=== PATIENT | male | born 1940 | race Two or more races ===

== ENCOUNTER 2022-07-09 10:35 | Inpatient (IN) | payer MEDICARE, BC ==
[2022-07-09] VITALS (12 sets, daily range): BP systolic 101–117; BP diastolic 56–83
[~2022-07-09] VITALS: Ht 180.3 cm; Wt 63.5 kg
--- NOTE | 2022-07-09 11:37 | NUR ---
NURSING SUP CALLED AND ICU BED - 260 PROVIDED
[2022-07-09 11:39] LABS: BASOPHILS % (AUTO) 0.4 % (0.0-2.0); EOSINOPHILS % (AUTO) 0.6 % (0.0-6.0); HEMATOCRIT 44 % (39-51); HEMOGLOBIN 14.5 g/dL (13.5-17.5); LYMPHOCYTES # (AUTO) 0.5 K/uL (0.8-4.8); LYMPHOCYTES % (AUTO) 4.5 % (20.0-44.0); MEAN CORPUSCULAR HGB CONC 33 g/dl (31.0-36.0); MEAN CORPUSCULAR VOLUME 92 fL (80-96); MONOCYTES # (AUTO) 0.3 K/uL (0.1-1.30); MONOCYTES % (AUTO) 2.9 % (2.0-12.0); NEUTROPHILS % (AUTO) 91.6 % (43.0-81.0); PLATELET COUNT (AUTO) 153 K/uL (150-450); RED BLOOD CELL COUNT(AUTO) 4.74 MIL/uL (4.5-6.0); WHITE BLOOD COUNT (AUTO) 10.9 K/uL (4.3-11.0)
[2022-07-09 12:11] LABS: CALCIUM, SERUM 8.9 mg/dL (8.5-10.1); CARBON DIOXIDE 28 mmol/L (21-32); CHLORIDE 105 mmol/L (98-107); CREATININE 1.1 mg/dL (0.6-1.3); GLUCOSE 133 mg/dL (74-106); POTASSIUM 4.5 mmol/L (3.5-5.1); SODIUM SERUM 138 mmol/L (136-145); UREA NITROGEN, BLOOD 30 mg/dL (7-18)
[2022-07-09 12:24] LABS: ALANINE AMINOTRANSFERASE 80 U/L (12-78); ALBUMIN 2.8 g/dL (3.4-5.0); ALKALINE PHOSPHATASE 101 U/L (46-116); ASPARTATE AMINOTRANSFERASE 57 U/L (15-37); BILIRUBIN,DIRECT 0.4 mg/dL (0.0-0.2); BILIRUBIN,TOTAL 1.2 mg/dL (0.2-1.0); TOTAL PROTEIN, SERUM 7.2 g/dL (6.4-8.2)
--- NOTE | 2022-07-09 12:28 | NUR ---
Critical lab lactic acid 2.[address] rere tucker
[2022-07-09] MEDS ORDERED: VANCOMYCIN 1 GM in IV D5W 250 ML IV ONE (12:30)
[2022-07-09] MEDS ORDERED: ENOXAPARIN SODIUM 40 MG/0.4 ML DISP.SYRIN SQ SCH (12:30)
[2022-07-09 12:46] LABS: ABG BASE EXCESS 0.7 mmol/L; ABG PCO2 29.5 mmHg (35.0-45.0); ABG PH 7.503 (7.350-7.450); ABG PO2 88.6 mmHg (75.0-100.0); COHb 0.8 % (0.5-1.5); MetHb 0.2 % (0.0-1.5); O2Hb 96.1 % (94.0-97.0)
[2022-07-09] MEDS ORDERED: VANCOMYCIN 1 GM VIAL ONE (12:56)
[2022-07-09] MEDS ORDERED: ENOXAPARIN SODIUM 40 MG/0.4 ML DISP.SYRIN SQ ONE (12:58)
[2022-07-09] MEDS ORDERED: CEFTRIAXONE 1GM BAG (ER ONLY) 50 ML IV ONE (12:58)
[2022-07-09] MEDS ORDERED: methylPREDNISolone SOD SUCC 125 MG/2ML VIAL ONE (12:59)
[2022-07-09] MEDS ORDERED: CEFTRIAXONE 1GM BAG (ER ONLY) 1 GM/50 ML PIGGYBACK IV ONE (13:00)
[2022-07-09] MEDS ORDERED: AZITHROMYCIN 500 MG in IV D5W 250 ML IV ONE (13:00)
--- NOTE | 2022-07-09 13:17 | NUR ---
CALLED DR BIANCA HOPPER SPEAKING WITH DR CONDE
[2022-07-09] MEDS: methylPREDNISolone SOD SUCC 125 MG/2ML VIAL IV SCH ×2 (13:19→21:08)
--- NOTE | 2022-07-09 13:20 | NUR ---
DR BIANCA HOPPER [phone]
--- NOTE | 2022-07-09 13:29 | NUR ---
PAGED EPIC MOUNTAIN GUIDE
--- NOTE | 2022-07-09 13:31 | NUR ---
EPIC INTEGRATION TECHNICIAN AND ER MD ON PHONE
--- NOTE | 2022-07-09 14:04 | NUR ---
ICU 260
--- NOTE | 2022-07-09 14:14 | NUR ---
PT ARRIVED IN ICU TO ROOM 260 AT THIS TIME. PT ALERT OX3, AT BEDSIDE. PT ON 10L SIMPLE MASK. PT SETTLED IN ROOM, PT PLACED ON MONITOR.
--- NOTE | 2022-07-09 14:29 | NUR ---
PATIENT TRANSFERRED TO ICU BED 260, REPORT WAS GIVEN TO RN IVETT, IV ANTIBIOTIC INFUSING AT TIME OF TRANSFER, ALL CARE ENDORSED.
[2022-07-09] MEDS: IV NS 0.9% 1,000 ML IV PRN (14:59)
[2022-07-09] MEDS ORDERED: ONDANSETRON HCL/PF 4 MG/2 ML VIAL IVP PRN (15:00)
[2022-07-09] MEDS: PIPERACILLIN /TAZOBACTAM 3.375 G in IV D5W 50 ML IV SCH ×2 (16:00→23:10)
[2022-07-09] MEDS ORDERED: ENOXAPARIN SODIUM 30 MG/0.3 ML DISP.SYRIN SQ ONE (16:30)
--- NOTE | 2022-07-09 18:29 | NUR ---
END OF SHIFT NOTE: PT CONTINUES TO BE ON 10L SIMPLE MASK, DESATS VERY EASILY. PT ENCOURAGED TO TAKE SLOW DEEP BREATHS WITH PURSED LIP BREATHING AND LIMITED TALKING. PT APPEARS TO BE ANXIOUS ASKING TO TALK TO DR CRONIN ABOUT HIS X-RAY RESULTS. PER DR CRONIN HE EXPLAINED PT'S XRAY RESULTS TO PATIENT IN ER. RN EXPLAINED TO PATIENT. PT COUGHS UP PHLEGM, PINK TINGED, DR CRONIN NOTIFIED. TROPONIN 218, ORDER RECEIVED TO INCREASE LOVENOX. PT CHECKED ON HOURLY AND PRN BY NURSING STAFF.
[2022-07-09] MEDS ORDERED: PHENYLEPHRINE/SHK LV/MO/PET,WH 30 GM TUBE RC PRN (19:00)
--- NOTE | 2022-07-09 20:00 | NUR ---
MARKET ANALYST RT UNABLE TO INDUCE SPUTUM TO SEND SPECIMEN Addendum: 07/11/22 at 0640 by CHANDANA MILLER RN WRONG PT
[2022-07-09] MEDS: IPRATROPIUM NEB FS 0.5 MG/2.5 ML AMPUL.NEB NEB SCH (20:22)
[2022-07-09] MEDS: ALBUTEROL HALF STRENGTH 1.25 MG/3 ML VIAL.NEB NEB SCH (20:22)
[2022-07-09] MEDS: GUAIFENESIN LA 600 MG TABLET.SA PO SCH (21:05)
[2022-07-09] MEDS: ENOXAPARIN SODIUM 60 MG/0.6 ML DISP.SYRIN SQ SCH (21:12)
[2022-07-10] VITALS (35 sets, daily range): BP systolic 92–128; BP diastolic 48–95
[2022-07-10] MEDS: IPRATROPIUM NEB FS 0.5 MG/2.5 ML AMPUL.NEB NEB SCH ×4 (02:29→20:07)
[2022-07-10] MEDS: ALBUTEROL HALF STRENGTH 1.25 MG/3 ML VIAL.NEB NEB SCH ×4 (02:29→20:07)
[2022-07-10 04:01] LABS: BASOPHILS % (AUTO) 0.1 % (0.0-2.0); HEMATOCRIT 40 % (39-51); HEMOGLOBIN 13.2 g/dL (13.5-17.5); LYMPHOCYTES # (AUTO) 0.4 K/uL (0.8-4.8); LYMPHOCYTES % (AUTO) 4.9 % (20.0-44.0); MEAN CORPUSCULAR HGB CONC 33 g/dl (31.0-36.0); MEAN CORPUSCULAR VOLUME 91 fL (80-96); MONOCYTES # (AUTO) 0.2 K/uL (0.1-1.30); MONOCYTES % (AUTO) 2.3 % (2.0-12.0); NEUTROPHILS # (AUTO) 7.5 K/uL (1.8-8.9); NEUTROPHILS % (AUTO) 92.7 % (43.0-81.0); PLATELET COUNT (AUTO) 121 K/uL (150-450); RED BLOOD CELL COUNT(AUTO) 4.37 MIL/uL (4.5-6.0); WHITE BLOOD COUNT (AUTO) 8.1 K/uL (4.3-11.0)
[2022-07-10] MEDS: methylPREDNISolone SOD SUCC 125 MG/2ML VIAL IV SCH ×3 (04:15→20:32)
[2022-07-10 04:27] LABS: CALCIUM, SERUM 8.1 mg/dL (8.5-10.1); CARBON DIOXIDE 27 mmol/L (21-32); CHLORIDE 105 mmol/L (98-107); GLUCOSE 151 mg/dL (74-106); MAGNESIUM 2.2 mg/dL (1.8-2.4); PHOSPHORUS 4.3 mg/dL (2.5-4.9); SODIUM SERUM 136 mmol/L (136-145); UREA NITROGEN, BLOOD 29 mg/dL (7-18)
[2022-07-10] MEDS: PIPERACILLIN /TAZOBACTAM 3.375 G in IV D5W 50 ML IV SCH ×3 (06:30→23:00)
[2022-07-10] MEDS: GUAIFENESIN LA 600 MG TABLET.SA PO SCH ×2 (08:24→20:32)
[2022-07-10] MEDS: IV NS 0.9% 1,000 ML IV PRN (08:24)
[2022-07-10] MEDS: ENOXAPARIN SODIUM 60 MG/0.6 ML DISP.SYRIN SQ SCH (08:26)
[2022-07-10] MEDS: Z GUARD REMEDY 4 OZ OINT TP SCH (08:27)
[2022-07-10 08:49] LABS: ABG BASE EXCESS -0.6 mmol/L; ABG OXYGEN SATURATION 97.8 % (92.0-98.5); ABG PCO2 30.3 mmHg (35.0-45.0); ABG PH 7.477 (7.350-7.450); ABG PO2 101.8 mmHg (75.0-100.0); AaDO2 580.9 mmHg; COHb 0.6 % (0.5-1.5); MetHb 0.2 % (0.0-1.5); SITE, ABG Right Radial
[2022-07-10] MEDS ORDERED: FUROSEMIDE 40 MG/4 ML VIAL IV SCH (10:00)
[2022-07-10] MEDS ORDERED: PHENOL/SODIUM PHENOLATE 1 LOZ LOZENGE PO PRN (10:30)
[2022-07-10] MEDS ORDERED: GUAI600T53 PO (11:05)
[2022-07-10] MEDS ORDERED: FEXO180T94 PO (11:05)
[2022-07-10] MEDS ORDERED: ROSU20TA32 PO (11:05)
--- NOTE | 2022-07-10 11:16 | NUR ---
RELAYED TO TROPONIN LEVEL= 184; NEW ORDER OF LOVENOX 40MG QDAILY GIVEN BY . CHARGE NURSE MADE AWARE.
[2022-07-10] MEDS: MENTHOL/CETYLPYRD (CEPACOL) 1 LOZ LOZENGE PO PRN ×3 (11:30→21:29)
[2022-07-10] MEDS: VANCOMYCIN 0.75 GM in IV D5W 250 ML IV SCH ×3 (12:15)
--- NOTE | 2022-07-10 13:15 | NUR ---
PATIENT AND HIS REQUESTING COPY OF LAB RESULT/ CXR RESULT; INFORMED PATIENT/ THAT THEY HAVE TO SIGN A REQUEST FORM TO BE SUBMITTED TO THE MEDICAL RECORD DEPT., BOTH VERBALIZED UNDERSTANDING AND AGREED TO THE GIVEN INFORMATION BY STAFF. CHARGE NURSE MADE AWARE.
--- NOTE | 2022-07-10 18:26 | NUR ---
PATIENT ON HFNC + NRB WITH SETTINGS OF 40L, 100%. PATIENT HFNC COONECTED TO RED POWER SOURCE WITH BVM BY THE BEDSIDE. PATIENT IS ALERT AND AWAKE FOLLOWS COMMAND. Addendum: 07/10/22 at 1828 by DYLLAN IBARRA RT Amended: Links added.
--- NOTE | 2022-07-10 20:00 | NUR ---
MACHINIST MATE RT UNABLE TO INDUCE SPUTUM TO SEND SPECIMEN Addendum: 07/11/22 at 0641 by CHANDANA MILLER RN WRONG PT
[2022-07-10] MEDS: PANTOPRAZOLE 40 MG VIAL IV SCH (20:32)
[2022-07-11] VITALS (24 sets, daily range): BP systolic 80–142; BP diastolic 43–92
[2022-07-11] MEDS: VANCOMYCIN 0.75 GM in IV D5W 250 ML IV SCH ×2 (00:35→12:42)
[2022-07-11] MEDS: ALBUTEROL HALF STRENGTH 1.25 MG/3 ML VIAL.NEB NEB SCH ×4 (01:41→20:02)
[2022-07-11] MEDS: IPRATROPIUM NEB FS 0.5 MG/2.5 ML AMPUL.NEB NEB SCH ×4 (01:41→20:02)
[2022-07-11] MEDS: methylPREDNISolone SOD SUCC 125 MG/2ML VIAL IV SCH ×3 (04:50→20:53)
[2022-07-11 05:29] LABS: CALCIUM, SERUM 8.3 mg/dL (8.5-10.1); CREATININE 1.1 mg/dL (0.6-1.3); POTASSIUM 3.4 mmol/L (3.5-5.1)
[2022-07-11] MEDS: PIPERACILLIN /TAZOBACTAM 3.375 G in IV D5W 50 ML IV SCH ×3 (06:00→23:20)
--- NOTE | 2022-07-11 07:30 | NUR ---
RN OPENING NOTE PT IS IN BED HOB 30 DEGREES. PT IS ON HIGH FLOW NC @ 40L FIO2 @100% TOLERATING WELL WITH NO SIGNS OF DISTRESS OR LABORED BREATHING O2 SAT 98%. PT IS A/OX3; NSR AT THIS TIME. PT USES URINAL AND IS INDEPENDENT IN BED. PT IS NPO AT THIS TIME EXCEPT FOR MEDS. IV ACCESS R UA MIDLINE. BED IS LOCKED IN LOWEST POSITION X2 BED RAILS UP AND ALL HOSPITAL SAFETY MEASURES ARE IN PLACE. WILL CONTINUE TO MONITOR THIS SHIFT.
--- NOTE | 2022-07-11 08:14 | NUR ---
WOUND CARE CONSULT: PT PRESENTS WITH SACRAL DEEP TISSUE INJURY IN EVOLUTION WHICH EXTENDS TO RT BUTTOCK, PRESENT ON ADMISSION. [id number] MADE FOR SKIN PROTECTION AND WOUND CARE. DISCUSSED WITH NURSING STAFF. IN AGREEMENT WITH PLAN OF CARE. FIRST STEP LOW AIRLOSS MATTRESS IS ON ORDER. DISCUSSED WITH HEALTH PROMOTION MANAGER. DR TOBIAS GARCIA CALLED FOR SURGICAL CONSULT REQUEST. Addendum: 07/11/22 at 0817 by DORA BECK WNDNU Amended: Links added.
[2022-07-11] MEDS: Z GUARD REMEDY 4 OZ OINT TP SCH (08:39)
[2022-07-11] MEDS: GUAIFENESIN LA 600 MG TABLET.SA PO SCH (08:39)
--- NOTE | 2022-07-11 09:00 | NUR ---
RN NOTE: DIET AND BEDSIDE CHAIR PER DR. CRONIN, START REGULAR DIET AND ENCOURAGE PT TO SIT IN CHAIR AT BEDSIDE TOLERATED
[2022-07-11 09:28] LABS: ABG OXYGEN SATURATION 88.1 % (92.0-98.5); ABG PCO2 31.9 mmHg (35.0-45.0); ABG PH 7.532 (7.350-7.450); ABG PO2 48.3 mmHg (75.0-100.0); AaDO2 632.8 mmHg; COHb 0.9 % (0.5-1.5); O2Hb 87.3 % (94.0-97.0); SITE, ABG Right Brachial; VENT MODE, BG HFN 40 L / 100% FIO2
[2022-07-11] MEDS: GUAIFENESIN 300 MG/15 ML UDC PO SCH ×2 (09:37→20:54)
[2022-07-11] MEDS: POTASSIUM CHLORIDE 20 MEQ TAB.PRT.SR PO SCH ×2 (09:37→11:09)
[2022-07-11] MEDS: ENOXAPARIN SODIUM 40 MG/0.4 ML DISP.SYRIN SQ SCH (09:38)
[2022-07-11] MEDS: ACETAMINOPHEN 325 MG TABLET PO PRN ×2 (12:38→21:03)
[2022-07-11] MEDS: PROSOURCE / PROSTAT (PYXIS) 30 ML UDC GT SCH ×2 (13:00→17:00)
[2022-07-11] MEDS: ENSURE CLEAR 237 ML LIQUID (MIX BERRY) PO SCH (17:00)
--- NOTE | 2022-07-11 19:15 | NUR ---
RN OPENING NOTES RECEIVED PATIENT ON BED AWAKE, VERBALLY RESPONSIVE, A/0 X 4. ON HIGH FLOW @ 40 LPM, FIO2-100% AND ON NON REBREATHER MASK @ 15 LPM SATING AT 99%. RESPIRATORY EVEN AND UNLABORED, NO SOB NOTED. AFEBRILE, NO S/S OF DISTRESS NOTED. WITH RAFA MIDLINE, PATENT, INTACT, FLUSHED WITH NS. NO S/S OF INFILTRATION NOTED. REPOSITION PATIENT EVERY 2 HRS. ALL SAFETY PRECAUTION PROVIDED, BED IN LOWEST POSITION, LOCKED. BED ALARM ARMED. CALL LIGHT WITH IN REACH. AT BEDSIDE. CONTINUE TO MONITOR.
--- NOTE | 2022-07-11 19:23 | NUR ---
RN CLOSING NOTE PT IS IN BED HOB 30 DEGREES. PT IS ON HIGH FLOW NC @ 40L FIO2 @100% AND NON REBREATHER 15L. TOLERATING WELL WITH NO SIGNS OF DISTRESS OR LABORED BREATHING O2 SAT 98%. PT IS A/OX3; NSR AT THIS TIME. PT USES URINAL AND IS INDEPENDENT IN BED PT HAD 2 BM TODAY. PT IS ON REGULAR OVO-LACTO DIET. IV ACCESS R UA MIDLINE. BED IS LOCKED IN LOWEST POSITION X2 BED RAILS UP AND ALL HOSPITAL SAFETY MEASURES ARE IN PLACE. WILL ENDORSE TO MERCHANDISE ADJUSTMENT CLERK NURSE FOR GARO.
--- NOTE | 2022-07-11 20:40 | NUR ---
SHARON NOTES PATIENT STILL TACHYPNEIC, RR- MID 40'S, ATIVAN 0.5MG IVP GIVEN Addendum: 07/12/22 at 0145 by LIEDA RUFF RN WRONG PATIENT
[2022-07-11] MEDS: PANTOPRAZOLE 40 MG VIAL IV SCH (20:53)
[2022-07-11] MEDS: MENTHOL/CETYLPYRD (CEPACOL) 1 LOZ LOZENGE PO PRN (21:37)
[2022-07-12] VITALS (24 sets, daily range): BP systolic 95–153; BP diastolic 46–85
[2022-07-12] MEDS: VANCOMYCIN 1 GM in IV D5W 250ml IV SCH ×2 (01:07→13:04)
[2022-07-12] MEDS: IV NS 0.9% 250 ML IV PRN (01:40)
[2022-07-12] MEDS: IPRATROPIUM NEB FS 0.5 MG/2.5 ML AMPUL.NEB NEB SCH ×3 (02:08→19:33)
[2022-07-12] MEDS: ALBUTEROL HALF STRENGTH 1.25 MG/3 ML VIAL.NEB NEB SCH ×3 (02:08→19:33)
[2022-07-12] MEDS: MENTHOL/CETYLPYRD (CEPACOL) 1 LOZ LOZENGE PO PRN ×2 (02:56→15:51)
[2022-07-12 03:36] LABS: CALCIUM, SERUM 7.8 mg/dL (8.5-10.1); POTASSIUM 4.2 mmol/L (3.5-5.1)
[2022-07-12] MEDS: methylPREDNISolone SOD SUCC 125 MG/2ML VIAL IV SCH ×3 (05:28→21:25)
[2022-07-12] MEDS: PIPERACILLIN /TAZOBACTAM 3.375 G in IV D5W 50 ML IV SCH ×3 (06:46→23:02)
--- NOTE | 2022-07-12 07:13 | NUR ---
RN NOTES PATIENT SLEEPING, AROUSABLE. RESPIRATORY EVEN AND UNLABORED, NO SOB NOTED. REMAIN AFEBRILE, NO S/S OF DISTRESS NOTED. REPOSITION PATIENT EVERY 2 HRS. ALL DUE MEDS GIVEN, WOUND CARE DONE, PROCEDURE TOLERATED WELL. ALL SAFETY PRECAUTION PROVIDED, BED IN LOWEST POSITION, LOCKED. BED ALARM ARMED. CALL LIGHT WITH IN REACH. REPORT GIVEN TO MORNING SHIFT NURSE FOR CONTINUITY OF CARE.
--- NOTE | 2022-07-12 07:15 | NUR ---
DRILL RUNNER HELPER OPENING NOTE: RECEIVED PATIENT IN BED, AOX4. PT. ON NON-REBREATHER MASK AT 15 LPM AND HIFLO NASAL CANNULA AT 40LPM AND FIO2 AT 100%, SATURATING AT 99%. NO S/S OF RESPIRATORY DISTRESS NOTED. COURT COLLECTIONS OFFICER READS NSR, WITH HR OF 67 BPM. IV ACCESS ON RAFA MIDLINE, PATENT, INTACT, WITH NS RUNNING AT TKO. NO S/S OF INFILTRATION NOTED. PT. USES URINAL IN BED WITH OUTPUT OF CLEAR YELLOW URINE. SKIN ISSUES NOTED. WILL DO WOUND TREATMENT ORDERED. SAFETY MEASURES IN PLACE: BED IN LOWEST POSITION, LOCKED. HOB ELEVATED AT 30 DEGREES. BED ALARM ON. CALL LIGHT WITH IN REACH. WILL ENCOURAGE REPOSITIONING IN BED AT LEAST EVERY 2 HRS. WILL CONTINUE TO MONITOR PT. FOR ANY CHANGES.
[2022-07-12] MEDS: ENSURE CLEAR 237 ML LIQUID (MIX BERRY) PO SCH ×2 (08:00→18:02)
[2022-07-12] MEDS: PROSOURCE / PROSTAT (PYXIS) 30 ML UDC GT SCH ×3 (09:00→18:01)
[2022-07-12] MEDS: Z GUARD REMEDY 4 OZ OINT TP SCH (09:05)
[2022-07-12] MEDS: PANTOPRAZOLE 40 MG TABLET.DR PO SCH (09:06)
[2022-07-12] MEDS: GUAIFENESIN 300 MG/15 ML UDC PO SCH ×2 (09:06→21:24)
[2022-07-12] MEDS: ENOXAPARIN SODIUM 40 MG/0.4 ML DISP.SYRIN SQ SCH (09:07)
--- NOTE | 2022-07-12 09:15 | NUR ---
PRINT BINDING AND FINISHING WORKER CLOSING NOTE: PATIENT REMAINS IN BED, AOX4. PT. NOW ON JUST HIFLO NASAL CANNULA AT 40LPM AND FIO2 AT 100%, SATURATING AT 92%. NO S/S OF RESPIRATORY DISTRESS NOTED. COMMUNITY RELATIONS REPRESENTATIVE READS NSR, WITH HR OF 92 BPM. IV ACCESS ON RAFA MIDLINE, PATENT, INTACT, WITH NS RUNNING AT TKO. NO S/S OF INFILTRATION NOTED. PT. USES URINAL IN BED WITH TOTAL OUTPUT OF 575 ML CLEAR YELLOW URINE THIS SHIFT. 1 NORMAL BM. WOUND TREATMENT DONE ORDERED. PT. HAD PT EVAL TODAY AND ONLY ABLE TO STAND UP THEN STARTED TO DESATURATE AT 78%. SAFETY MEASURES MAINTAINED: BED IN LOWEST POSITION, LOCKED. HOB ELEVATED AT 30 DEGREES. BED ALARM ON. CALL LIGHT WITH IN REACH. ENCOURAGED REPOSITIONING IN BED AT LEAST EVERY 2 HRS. ENDORSED CONTINUITY OF CARE TO LEGAL COLLECTOR RN. Addendum: 07/12/22 at 2111 by KARI PINTO RN DOCUMENTED WITH WRONG TIME. THIS NOTE SHOULD BE DOCUMENTED AT 1915.
[2022-07-12 09:21] LABS: BASOPHILS % (AUTO) 0.3 % (0.0-2.0); EOSINOPHILS % (AUTO) 0.1 % (0.0-6.0); HEMATOCRIT 36 % (39-51); HEMOGLOBIN 12.1 g/dL (13.5-17.5); LYMPHOCYTES # (AUTO) 0.2 K/uL (0.8-4.8); LYMPHOCYTES % (AUTO) 3.2 % (20.0-44.0); MEAN CORPUSCULAR HGB CONC 34 g/dl (31.0-36.0); MEAN CORPUSCULAR VOLUME 91 fL (80-96); MONOCYTES # (AUTO) 0.2 K/uL (0.1-1.30); MONOCYTES % (AUTO) 3.7 % (2.0-12.0); NEUTROPHILS # (AUTO) 5.4 K/uL (1.8-8.9); NEUTROPHILS % (AUTO) 92.7 % (43.0-81.0); PLATELET COUNT (AUTO) 114 K/uL (150-450); RED BLOOD CELL COUNT(AUTO) 3.95 MIL/uL (4.5-6.0); WHITE BLOOD COUNT (AUTO) 5.8 K/uL (4.3-11.0)
[2022-07-12 12:17] LABS: BAND % (MANUAL) 4 % (0.0-5.0); LYMPHOCYTES % (MANUAL) 2 % (16-48); MONOCYTES % (MANUAL) 6 % (0-11.0); NEUTROPHILS % (MANUAL) 88 (42-76)
[2022-07-12] MEDS: ACETAMINOPHEN 325 MG TABLET PO PRN (13:06)
--- NOTE | 2022-07-12 14:10 | NUR ---
DELINQUENT TAX COLLECTOR ASSISTANT NOTE: PT. COMPLAINED OF 3/10 HEADACHE AT 1300. TYLENOL 650 MG PO GIVEN. PAIN NOW RESOLVED PER PT. WILL CONTINUE TO MONITOR PT.'S PAIN.
[2022-07-12] MEDS ORDERED: FINA5TAB11 PO (17:20)
--- NOTE | 2022-07-12 19:15 | NUR ---
RN OPENING NOTES RECEIVED PATIENT ON BED AWAKE, VERBALLY RESPONSIVE, A/0 X 4. ON HIGH FLOW @ 40 LPM, FIO2-100% SATING AT 89-90%. RESPIRATORY EVEN AND UNLABORED, NO SOB NOTED. AFEBRILE, NO S/S OF DISTRESS NOTED. WITH RAFA MIDLINE, PATENT, INTACT, FLUSHED WITH NS. NO S/S OF INFILTRATION NOTED. REPOSITION PATIENT EVERY 2 HRS. ALL SAFETY PRECAUTION PROVIDED, BED IN LOWEST POSITION, LOCKED. BED ALARM ARMED. CALL LIGHT WITH IN REACH. AT BEDSIDE. CONTINUE TO MONITOR.
[2022-07-12] MEDS: ACETYLCYSTEINE 10% SOLN 400 MG/4 ML VIAL NEB SCH (23:46)
[2022-07-13] VITALS (24 sets, daily range): BP systolic 99–154; BP diastolic 62–92
[2022-07-13] MEDS: VANCOMYCIN 1 GM in IV D5W 250ml IV SCH (01:26)
[2022-07-13] MEDS: IPRATROPIUM NEB FS 0.5 MG/2.5 ML AMPUL.NEB NEB SCH ×5 (01:53→23:30)
[2022-07-13] MEDS: ALBUTEROL HALF STRENGTH 1.25 MG/3 ML VIAL.NEB NEB SCH ×4 (01:53→20:12)
[2022-07-13 04:15] LABS: HEMATOCRIT 38 % (39-51); HEMOGLOBIN 12.7 g/dL (13.5-17.5); LYMPHOCYTES # (AUTO) 0.2 K/uL (0.8-4.8); LYMPHOCYTES % (AUTO) 2.8 % (20.0-44.0); MEAN CORPUSCULAR HGB CONC 34 g/dl (31.0-36.0); MEAN CORPUSCULAR VOLUME 91 fL (80-96); MONOCYTES # (AUTO) 0.2 K/uL (0.1-1.30); MONOCYTES % (AUTO) 3.3 % (2.0-12.0); NEUTROPHILS # (AUTO) 6.3 K/uL (1.8-8.9); NEUTROPHILS % (AUTO) 93.9 % (43.0-81.0); PLATELET COUNT (AUTO) 104 K/uL (150-450); RED BLOOD CELL COUNT(AUTO) 4.19 MIL/uL (4.5-6.0); WHITE BLOOD COUNT (AUTO) 6.7 K/uL (4.3-11.0)
[2022-07-13 04:36] LABS: CALCIUM, SERUM 8.1 mg/dL (8.5-10.1); CREATININE 0.8 mg/dL (0.6-1.3); POTASSIUM 4.1 mmol/L (3.5-5.1)
[2022-07-13] MEDS: methylPREDNISolone SOD SUCC 125 MG/2ML VIAL IV SCH (05:00)
[2022-07-13] MEDS: IV NS 0.9% 250 ML IV PRN (06:33)
[2022-07-13] MEDS: PIPERACILLIN /TAZOBACTAM 3.375 G in IV D5W 50 ML IV SCH ×3 (06:36→23:14)
--- NOTE | 2022-07-13 07:20 | NUR ---
PIPE FITTER AMMONIA Bedside report taken from [facility] nurse Lalo HERRERA. pt awake, alert, oriented x3, follows commands. pt moves bue and ble 3/5 and sitting up in bed. pt on high flow n/c with fio2 100%, tolerating well. pt NSR on monitor. pt continent and voids in urinal but gets sob upon exertion. bowel sounds present, abd soft and nondistended. pt has wounds see flowsheet. all lines traced. vitals stable. safety measures in place. will continue to monitor.
[2022-07-13] MEDS: PANTOPRAZOLE 40 MG TABLET.DR PO SCH (08:15)
[2022-07-13] MEDS: GUAIFENESIN 300 MG/15 ML UDC PO SCH ×2 (08:15→21:24)
[2022-07-13] MEDS: PROSOURCE / PROSTAT (PYXIS) 30 ML UDC GT SCH ×3 (08:16→17:00)
[2022-07-13] MEDS: ENSURE CLEAR 237 ML LIQUID (MIX BERRY) PO SCH ×2 (08:16→17:00)
[2022-07-13] MEDS: Z GUARD REMEDY 4 OZ OINT TP SCH (08:17)
[2022-07-13 08:46] LABS: ABG BASE EXCESS 3.6 mmol/L; ABG OXYGEN SATURATION 74.5 % (92.0-98.5); ABG PCO2 35.3 mmHg (35.0-45.0); ABG PH 7.496 (7.350-7.450); ABG PO2 36.5 mmHg (75.0-100.0); AaDO2 641.2 mmHg; COHb 0.9 % (0.5-1.5); MetHb 0.1 % (0.0-1.5); O2Hb 73.8 % (94.0-97.0); SITE, ABG Left Radial; VENT MODE, BG HHF 100%
--- NOTE | 2022-07-13 08:55 | NUR ---
AS400 PROGRAMMER ANALYST RT placed pt back on nonrebreather mask. pt tolerating well. vitals stable. will continue to monitor.
[2022-07-13] MEDS: ENOXAPARIN SODIUM 40 MG/0.4 ML DISP.SYRIN SQ SCH (09:12)
[2022-07-13] MEDS: ACETYLCYSTEINE 10% SOLN 400 MG/4 ML VIAL NEB SCH ×3 (09:13→23:30)
[2022-07-13] MEDS ORDERED: GUAIFENESIN LA 600 MG TABLET.SA PO PRN (10:00)
--- NOTE | 2022-07-13 10:00 | NUR ---
COMPRESSOR STATION ENGINEER pt had bm, stool collected for cdiff, lab called for pickup.
[2022-07-13] MEDS ORDERED: cetrizine 10 MG TABLET PO PRN (10:30)
--- NOTE | 2022-07-13 11:30 | NUR ---
PROMOTIONAL MARKETING AGENT lab called for second time for cdiff stool specimen pickup.
[2022-07-13] MEDS ORDERED: VANCOMYCIN 1.25 GM in IV D5W 250 ML IV SCH (13:00)
[2022-07-13] MEDS: ACETAMINOPHEN 325 MG TABLET PO PRN (13:45)
--- NOTE | 2022-07-13 13:59 | NUR ---
PIPE FINISHER per lab, specimen will not be tested and is rejected because stool is not liquid. charge nurse Lawerence peng and notified.
[2022-07-13] MEDS ORDERED: DIPHENOXYLATE HCL/ATROP SULF 1 UDTAB TABLET PO PRN (15:00)
[2022-07-13] MEDS: cetrizine 10 MG TABLET PO SCH (15:47)
[2022-07-13] MEDS: ATORVASTATIN 40 MG TABLET PO SCH (18:20)
--- NOTE | 2022-07-13 19:07 | NUR ---
HEATING UNIT INSTALLER Bedside report given to [facility] nurse Her RN, pt on highflow n/c and nonrebreather, tolerating well. awake, alert and oriented. all lines traced. all drips verified. pt clean and dry. safety measures in place, no signs of acute distress at this time. at bedside. transfer to [facility] pending nursing wind operations supervisor Simi HERRERA working on transfer, endorsed to [facility] nurse.
--- NOTE | 2022-07-13 19:45 | NUR ---
Patient wants the patient to transfer to [facility]. made aware that there is no order from the chart to transfer. She said to call the extrusion press adjuster doctor.There in only Timoteo LARIOS whose is extrusion press adjuster at this time.Patient is adamant to transfer patient to [facility].Called Timoteo LARIOS regarding this matter.She said she can not order any transfer since she dont know this patient. She called .Per above MD he can order transfer if [facility] accepting MD Dr.Benjamin Copeland will call him. made aware.
--- NOTE | 2022-07-13 20:35 | NUR ---
Called Flagsetter /supervisor carbon electrodes Simi about this transfer.She said to call [facility].Will find if bed is available. Called Giovanni at [facility] Tel phone # [phone] as regional transfer liaison.He said he will call Dr.Benjamin Dinorah howard MD for this patient.Face sheet fax to Giovanni as requested. .
--- NOTE | 2022-07-13 20:45 | NUR ---
Called Giovanni from [facility] and made him aware that accepting MD Dr.Benjamin Copeland will call for the transfer and provided tel phone # [phone] mobile.
--- NOTE | 2022-07-13 22:22 | NUR ---
RN NOTES PER PATIENT'S , PATIENT'S CODE STATUS TO BE CHANGED TO DNR/DNI. HOSPITALIST LEADERSHIP DEVELOPMENT CONSULTANT JAN STEWART NP NOTIFIED, CODE STATUS CHANGED TO DNR/DNI.
[2022-07-14] VITALS (24 sets, daily range): BP systolic 105–139; BP diastolic 32–106
[2022-07-14] MEDS: ALBUTEROL HALF STRENGTH 1.25 MG/3 ML VIAL.NEB NEB SCH ×4 (01:28→20:11)
[2022-07-14 04:26] LABS: BASOPHILS % (AUTO) 0.1 % (0.0-2.0); HEMATOCRIT 38 % (39-51); HEMOGLOBIN 12.7 g/dL (13.5-17.5); LYMPHOCYTES # (AUTO) 0.1 K/uL (0.8-4.8); LYMPHOCYTES % (AUTO) 1.9 % (20.0-44.0); MEAN CORPUSCULAR HGB CONC 33 g/dl (31.0-36.0); MEAN CORPUSCULAR VOLUME 91 fL (80-96); MONOCYTES # (AUTO) 0.2 K/uL (0.1-1.30); MONOCYTES % (AUTO) 2.1 % (2.0-12.0); NEUTROPHILS # (AUTO) 7.4 K/uL (1.8-8.9); NEUTROPHILS % (AUTO) 95.9 % (43.0-81.0); PLATELET COUNT (AUTO) 91 K/uL (150-450); RED BLOOD CELL COUNT(AUTO) 4.21 MIL/uL (4.5-6.0); WHITE BLOOD COUNT (AUTO) 7.7 K/uL (4.3-11.0)
[2022-07-14 04:47] LABS: CARBON DIOXIDE 31 mmol/L (21-32); CHLORIDE 104 mmol/L (98-107); CREATININE 0.7 mg/dL (0.6-1.3); GLUCOSE 190 mg/dL (74-106); MAGNESIUM 2.5 mg/dL (1.8-2.4); PHOSPHORUS 2.4 mg/dL (2.5-4.9); POTASSIUM 4.3 mmol/L (3.5-5.1); SODIUM SERUM 139 mmol/L (136-145); UREA NITROGEN, BLOOD 35 mg/dL (7-18)
--- NOTE | 2022-07-14 07:30 | NUR ---
RN NOTES PT FOUND SEMI FOWLERS DISPLAYING NO S/S OF ACUTE DISTRESS, PT ENDORSES NO PAIN AND IS BREATHING EVEN AND UNLABORED ON HIGH FLOW NC AND RNB. PT BREATHING DOES BECOME LABORED WHEN EATING OR TALKING, RN NOTES PURSED LIPS TO COMPENSATE. R UA ML IS PATENT AND INTACT. RN WILL CONTINUE CARE PLAN AND ANTICIPATE NEEDS. SAFETY MEASURES IN PLACE, BED LOCKED AND IN LOWEST POSITION, SIDE RAILS UPX2, CALL LIGHT WITHIN REACH, BED ALARM ARMED.
[2022-07-14] MEDS: PIPERACILLIN /TAZOBACTAM 3.375 G in IV D5W 50 ML IV SCH ×3 (07:34→22:59)
--- NOTE | 2022-07-14 07:35 | NUR ---
RN NOTES ENDORSED CARE OF PATIENT TO AM NURSE. NO SIGNIFICANT CHANGES TO PATIENT'S CONDITION THROUGHOUT SHIFT. NO SIGNIFICANT FINDINGS UPON ALL NURSING ASSESSMENTS. PLAN OF CARE CARRIED OUT. SAFETY MEASURES IMPLEMENTED PER HOSPITAL PROTOCOLS. ENDORSED CARE OF PATIENT TO AM NURSE FOR GARO.
[2022-07-14] MEDS: IPRATROPIUM NEB FS 0.5 MG/2.5 ML AMPUL.NEB NEB SCH ×3 (08:03→20:11)
[2022-07-14] MEDS: ACETYLCYSTEINE 10% SOLN 400 MG/4 ML VIAL NEB SCH ×2 (08:03→16:01)
[2022-07-14] MEDS: ENSURE CLEAR 237 ML LIQUID (MIX BERRY) PO SCH ×2 (08:06→17:52)
[2022-07-14] MEDS ORDERED: K PHOS NEUTRAL 250 MG TABLET PO ONE (09:00)
[2022-07-14] MEDS: PROSOURCE / PROSTAT (PYXIS) 30 ML UDC GT SCH ×3 (09:00→17:00)
[2022-07-14] MEDS: cetrizine 10 MG TABLET PO SCH (09:22)
[2022-07-14] MEDS: PANTOPRAZOLE 40 MG TABLET.DR PO SCH (09:22)
[2022-07-14] MEDS: FINASTERIDE (5 MG) 5 MG TABLET PO SCH (09:22)
[2022-07-14] MEDS: GUAIFENESIN 300 MG/15 ML UDC PO SCH ×2 (09:23→21:14)
[2022-07-14] MEDS: Z GUARD REMEDY 4 OZ OINT TP SCH (09:23)
[2022-07-14] MEDS: ATORVASTATIN 40 MG TABLET PO SCH (17:53)
--- NOTE | 2022-07-14 19:10 | NUR ---
RN NOTES RECEIVED REPORT FROM MORNING RN. PATIENT IN BED A/O X3-4 WITH AT BEDSIDE. ON HIGH FLOW @ 40%, 100% FIO2, NON REBREATHER AT 15LPM TOLERATING WELL SATING 98%. WITH IV ACCESS AT RAFA MIDLINE PATENT RUNNING NS @ TKO. VITAL SIGNS TAKEN AND RECORDED AFEBRILE. ALL SAFETY MEASURES IN PLACE AT ALL TIMES. HOB ELEVATED.CALL LIGHT WITHIN REACH. BED ON LOWEST POSITION AND LOCKED. FOR POSSIBLE TRANSFER TO [facility] KTAIE HEATH WILL WAIT FOR CALL FROM [facility]. WILL CLOSELY MONITOR THE PATIENT.
--- NOTE | 2022-07-14 19:20 | NUR ---
RN NOTES PT FOUND SEMI FOWLERS DISPLAYING NO S/S OF ACUTE DISTRESS, PT ENDORSES NO PAIN AND IS BREATHING EVEN AND UNLABORED ON HIGH FLOW NC AND RNB. RN INFORMED CURTAIN HEMMER AUTOMATIC OF PENDING TRANSFER TO [facility]. R UA ML IS PATENT AND INTACT. SBAR AND REPORT GIVEN TO CURTAIN HEMMER AUTOMATIC RN, ALL QUESTIONS ANSWERED. SAFETY MEASURES IN PLACE, BED LOCKED AND IN LOWEST POSITION, SIDE RAILS UPX2, CALL LIGHT WITHIN REACH, BED ALARM ARMED. PT ENDORSED IN STABLE CONDITION FOR GARO.
--- NOTE | 2022-07-14 19:59 | NUR ---
Patient VIVIANA here inquiring about patient transfer to [facility].Called [facility] Transfer Center# [phone] talked to Ciro.She said no bed available this time.Left Hospital phone number and patient's name.Patient Viviana made aware no bed available this time.
--- NOTE | 2022-07-14 20:30 | NUR ---
Ciro from [facility] patient transfer center called for patient status vital signs and O2 usage and medical history and will discuss with ICU MD and STAFF.
--- NOTE | 2022-07-14 20:31 | NUR ---
PT RCVD ON HI FLOW 40L ,100% + NON REBREATHER . PT IS ALERT AND AWAKE . BREATHING TX GIVEN PER MD'S ORDER, NO ADVERSE REACTION NOTED . WILL CONTINUE TO MONITOR T/O SHIFT.
--- NOTE | 2022-07-14 20:40 | NUR ---
Ciro from [facility] called back and she said that ICU STAFF not comfortable to take patient at this time not stable for transfer due to high O2 usage. made aware.
[2022-07-15] VITALS (28 sets, daily range): BP systolic 35–162; BP diastolic 25–115
[2022-07-15] MEDS: ACETYLCYSTEINE 10% SOLN 400 MG/4 ML VIAL NEB SCH ×3 (00:06→14:22)
[2022-07-15] MEDS: IPRATROPIUM NEB FS 0.5 MG/2.5 ML AMPUL.NEB NEB SCH ×4 (00:34→19:29)
[2022-07-15] MEDS: ALBUTEROL HALF STRENGTH 1.25 MG/3 ML VIAL.NEB NEB SCH ×4 (00:34→19:29)
[2022-07-15 05:03] LABS: CALCIUM, SERUM 8.3 mg/dL (8.5-10.1); CREATININE 0.8 mg/dL (0.6-1.3); PHOSPHORUS 3.1 mg/dL (2.5-4.9)
[2022-07-15 05:14] LABS: BASOPHILS % (AUTO) 0.3 % (0.0-2.0); HEMATOCRIT 37 % (39-51); HEMOGLOBIN 12.3 g/dL (13.5-17.5); LYMPHOCYTES # (AUTO) 0.1 K/uL (0.8-4.8); LYMPHOCYTES % (AUTO) 1.2 % (20.0-44.0); MEAN CORPUSCULAR HGB CONC 33 g/dl (31.0-36.0); MEAN CORPUSCULAR VOLUME 91 fL (80-96); MONOCYTES # (AUTO) 0.3 K/uL (0.1-1.30); MONOCYTES % (AUTO) 3.1 % (2.0-12.0); NEUTROPHILS # (AUTO) 8.7 K/uL (1.8-8.9); NEUTROPHILS % (AUTO) 95.4 % (43.0-81.0); PLATELET COUNT (AUTO) 59 K/uL (150-450); WHITE BLOOD COUNT (AUTO) 9.1 K/uL (4.3-11.0)
--- NOTE | 2022-07-15 07:20 | NUR ---
TEST FIXTURE ASSEMBLER Bedside report taken from [facility] nurse Miner RN. pt awake, alert, oriented x3, follows commands. pt moves bue and ble 3/5 and sitting up in bed. pt on high flow n/c with fio2 100%, tolerating well. pt NSR on monitor. pt continent and voids in urinal but gets sob upon exertion. bowel sounds present, abd soft and nondistended. pt has wounds see flowsheet. all lines traced. vitals stable. safety measures in place. will continue to monitor.
--- NOTE | 2022-07-15 07:54 | NUR ---
PT IS AWAKE AND FOLLOW COMMANDS RECEIVED ON HIGH FLOW 40 L / 100% FIO2 WITH 15 LPM NON REBREATHER. PLACED INTO 15 LPM O2 FLOW OF NON REBREATHER ONLY AND OFF HIGHFLOW PER DR. CRONIN AND WILL DO ABG AFTER 1 HOUR. RN NOTIFIED ON NEW INTERVENTION. Addendum: 07/15/22 at 0758 by JORGE HOOPER RT Amended: Links added.
--- NOTE | 2022-07-15 08:00 | NUR ---
CLASSIFICATION CONTROL CLERK Pt placed on nonrebreather 15L per Dr Gomez orders. pt awake, alert and tolerating well at this time. Dr Oliver at bedside assessing pt and updated on pt status. talking to pt with Cuco HERRERA about pt condition and plan of care as well as status on transfer to [facility]. no other orders at this time. will continue to monitor.
--- NOTE | 2022-07-15 08:20 | NUR ---
RESIDENTIAL ASSISTANT Dr Gomez at bedside assessing pt and updated on pt status. md aware that pt on nonrebreather and tolerating well. md updating pt about pt condition and plan of care. no new orders at this time. will continue to monitor.
[2022-07-15] MEDS: ENSURE CLEAR 237 ML LIQUID (MIX BERRY) PO SCH ×2 (08:24→16:19)
[2022-07-15] MEDS: PIPERACILLIN /TAZOBACTAM 3.375 G in IV D5W 50 ML IV SCH (08:28)
[2022-07-15] MEDS: PANTOPRAZOLE 40 MG TABLET.DR PO SCH (08:28)
[2022-07-15] MEDS: cetrizine 10 MG TABLET PO SCH (08:28)
[2022-07-15] MEDS: GUAIFENESIN 300 MG/15 ML UDC PO SCH (08:28)
[2022-07-15] MEDS: FINASTERIDE (5 MG) 5 MG TABLET PO SCH (08:28)
[2022-07-15] MEDS: PROSOURCE / PROSTAT (PYXIS) 30 ML UDC GT SCH ×3 (08:29→16:19)
[2022-07-15] MEDS: Z GUARD REMEDY 4 OZ OINT TP SCH (08:29)
[2022-07-15 10:09] LABS: ABG BASE EXCESS 4.6 mmol/L; ABG OXYGEN SATURATION 95.8 % (92.0-98.5); ABG PCO2 33.5 mmHg (35.0-45.0); ABG PH 7.526 (7.350-7.450); AaDO2 591.3 mmHg; COHb 1.2 % (0.5-1.5); MetHb 0.1 % (0.0-1.5); O2Hb 94.6 % (94.0-97.0); SITE, ABG Right Brachial; VENT MODE, BG non rebreather only
[2022-07-15 10:09] LABS: ABG OXYGEN SATURATION 87.9 % (92.0-98.5); ABG PH 7.521 (7.350-7.450); ABG PO2 50.5 mmHg (75.0-100.0); AaDO2 629.5 mmHg; COHb 1.2 % (0.5-1.5); MetHb 0.1 % (0.0-1.5); O2Hb 86.8 % (94.0-97.0); SITE, ABG Right Radial; VENT MODE, BG NRB MASK
[2022-07-15 10:21] LABS: BAND % (MANUAL) 5 % (0.0-5.0); LYMPHOCYTES % (MANUAL) 2 % (16-48); MONOCYTES % (MANUAL) 3 % (0-11.0); NEUTROPHILS % (MANUAL) 90 (42-76)
--- NOTE | 2022-07-15 13:50 | NUR ---
SAS STATISTICAL PROGRAMMER Pt has labored breathing and extreme aggitation and desaturation spo2 76% and sustained. Malcolm RT at bedside pt placed on bipap fio2 100%, Dr Gomez called to bedside. Dr Gomez assessing pt and talking to pt . no other orders at this time. per md keep pt on bipap until pt respiratory status is stable and pt settles down.
--- NOTE | 2022-07-15 14:06 | NUR ---
pt. placed into bipap due to increased work of breathing and desaturation with parameters below as ordered: ipap 20 epap 8 rate 20 fio2 100% rn aware at bedside and dr. weathers notified Addendum: 07/15/22 at 1413 by JORGE HOOPER RT Amended: Links added.
[2022-07-15 14:40] LABS: ABG BASE EXCESS 2.9 mmol/L; ABG OXYGEN SATURATION 89.2 % (92.0-98.5); ABG PCO2 40.1 mmHg (35.0-45.0); ABG PH 7.447 (7.350-7.450); ABG PO2 56.9 mmHg (75.0-100.0); COHb 1.7 % (0.5-1.5); MetHb 0.2 % (0.0-1.5); O2Hb 87.5 % (94.0-97.0); SITE, ABG Left Brachial; VENT MODE, BG IPAP 20 / EPAP 8
--- NOTE | 2022-07-15 14:43 | NUR ---
INCREASED EPAP FROM 8 TO [address] CRONIN. Addendum: 07/15/22 at 1444 by JORGE HOOPER RT Amended: Links added.
--- NOTE | 2022-07-15 15:18 | NUR ---
PT. INTUBATED BY KAYLEEN MCCLOUD PER DR. CRONIN DUE TO INCREASED WORK OF BREATHING AND DESATURATION. PT. INTUBATED WITH 7.0 ET TUBE SECURED @ 22 CM LIPLINE. CO2 DETECTOR CHANGED TO YELLOW COLOR POST INTUBATION. BREATH SOUNDS COARSE RHONCHI BILATERAL WITH SYMMETRICAL CHEST RISE POST INTUBATION. VENT SETTINGS BELOW PER DR. CRONIN: AC 20 VT 450ML FIO2 100% PEEP +10 VENT PLUGGED INTO RED OUTLET WITH ALARMS ON AND FUNCTIONING. BVM @ BEDSIDE Addendum: 07/15/22 at 1546 by JORGE HOOPER RT Amended: Links added.
--- NOTE | 2022-07-15 15:18 | NUR ---
HYDROSTATIC TESTER Pt in respiratory distress using accessory muscles. Dr Gomez and ER MD at bedside to intubate. pt intubated 7.0 22 cm at the lip. chest xray completed. attempted to place NGT and OGT unable to advance tube, tube coils and pt started bleeding from nose and mouth, RN x2 attempted, charge nurse Cuco HERRERA and Dr Gomez aware, am platelets 59. linen change done. vitals stable. at this time. family talking to md and updated on pt status and condition. new orders pending.
[2022-07-15] MEDS ORDERED: IV NS 0.9% 1,000 ML IV ONE (15:20)
[2022-07-15] MEDS ORDERED: PROPOFOL 100 ML IV PRN ×2 (15:30)
--- NOTE | 2022-07-15 15:47 | NUR ---
ET TUBE DELVIS BROCK PER DR. CRONIN: 2 CM PUSHED IN. ET TUBE ADJUSTED FROM 22 CM TO 24 CM PEDRO LUIS ORDER. Addendum: 07/15/22 at 1548 by JORGE HOOPER RT Amended: Links added.
[2022-07-15] MEDS ORDERED: NOREPINEPHRINE 8 MG in IV NS 0.9% 242 ML IV PRN (16:00)
[2022-07-15] MEDS: ATORVASTATIN 40 MG TABLET PO SCH (16:19)
[2022-07-15 16:23] LABS: ABG BASE EXCESS -4.8 mmol/L; ABG OXYGEN SATURATION 86.3 % (92.0-98.5); ABG PCO2 42.7 mmHg (35.0-45.0); ABG PH 7.314 (7.350-7.450); ABG PO2 59.6 mmHg (75.0-100.0); AaDO2 610.7 mmHg; COHb 1.2 % (0.5-1.5); MetHb 0.2 % (0.0-1.5); O2Hb 85.1 % (94.0-97.0); PEEP,BG 10 cm H2O; SITE, ABG Right Femoral; VT, ABG 450 mL
--- NOTE | 2022-07-15 16:40 | NUR ---
MULTIMEDIA PROJECT MANAGER Barboza catheter placed per md order using sterile technique. pt tolerated well. Tech at bedside to do US of BLE. pt tolerating well. vitals stable. will continue to monitor.
[2022-07-15] MEDS ORDERED: ENOXAPARIN SODIUM 60 MG/0.6 ML DISP.SYRIN SQ SCH (17:00)
[2022-07-15] MEDS ORDERED: ETOMIDATE 2 MG/ML VIAL IV ONE (17:44)
[2022-07-15] MEDS ORDERED: SUCCINYLCHOLINE CHLORIDE 20 MG/ML VIAL IV ONE (17:44)
--- NOTE | 2022-07-15 18:39 | NUR ---
MANAGER PACU Updated Siddharth from [facility] regarding pt transfer.
--- NOTE | 2022-07-15 18:53 | NUR ---
[employer] spoke to herminia Belcher RN. informed that per [facility] rep Siddharth pt to be transfered to [facility] [address] [facility] [address] [address] 4 ICU Room 4364 phone number for report: Siddharth phone number for any updates or questions per [facility] please send pt with full copy of records and chart as well as any imaging done at [facility] Per Nursing Laura Belcher RN, she will send a list of [facility] transport to charge nurse phone and charge nurse [place]wood RN is to call and set up for critical care transport for pt . Charge nurse Cuco RN speaking with Simi HERRERA at this time discussing pt transport.
--- NOTE | 2022-07-15 19:05 | NUR ---
CERTIFIED REHABILITATION COUNSELOR Pt starts Addendum: 07/15/22 at 1919 by REGISTRY [facility] INPATIENT RN1 RN CERTIFIED REHABILITATION COUNSELOR Pt starts bradying down, bp 94-105 levophed increased. Charge nurse Cuco RN at bedside. Pt called to come back to bedside. awaiting .
--- NOTE | 2022-07-15 19:05 | NUR ---
RN NOTE PT DNR STATUS. HEART RATE DECELERATED TO ASYSTOLE. CONFIRMED IN 2 LEADS. PT AREFLEXIVE, PUPILS FIXED. PRONOUNCED AT 190
--- NOTE | 2022-07-15 19:09 | NUR ---
ROAD CREW MEMBER Bedside report given to [facility] nurse Wilman HERRERA. pt sedated and intubated. all lines traced. all drips verified. safety measures in place. no signs of acute distress at this time. Addendum: 07/15/22 at 1912 by REGISTRY [facility] INPATIENT RN1 RN ERROR- Documentation done on wrong pt chart.
--- NOTE | 2022-07-15 19:10 | NUR ---
BOAT JOINER HELPER Pt asystole. Pt DNR/ DNI per md order.
--- NOTE | 2022-07-15 19:15 | NUR ---
REQUIREMENTS MANAGER Pt and sons at bedside. charge nurse Cuco RN at bedside speaking to pt family.
--- NOTE | 2022-07-15 19:20 | NUR ---
EXECUTIVE SERVICES ADMINISTRATOR Attempted to call [facility] pt placement to inform that pt . no answer at this time. will endorse to [facility] nurse.
--- NOTE | 2022-07-15 19:32 | NUR ---
POKER DEALER [facility] [employer] called, spoke to fulfillment representative Carrol. pt not candidate for donation and body can be released to family per [facility]. Reference # [id number]. Report given to [facility] nurse Stovall. post mortem care and completion of documentation endorsed to noc nurse. charge nurse Cuco HERRERA reviewing documents.
--- NOTE | 2022-07-15 20:30 | NUR ---
MASON TENDER NOTES POST MORTEM RENDERED. PATIENT KEPT CLEAN ; FAMILY AT BEDSIDE. AWAITING FOR MORTUARY TO RELATIONSHIP SPECIALIST THE BODY. PHARMACEUTICAL PHYSICIAN AWARE.
[2022-07-15] MEDS ORDERED: methylPREDNISolone SOD SUCC 1,000 MG in IV NS 0.9% 250 ML IV SCH (21:00)
--- NOTE | 2022-07-15 22:20 | NUR ---
MIMEOGRAPH OPERATOR NOTES MORTUARY ([facility]) PICKED UP THE PATIENT. ALL PAPERS SIGNED. CORN SHUCKER WELL AWARE.
== END 2022-07-15 22:57 | DRG 208 ==
LOC: ER 10:37 → ICU 14:11
PROVIDERS: ADMIT Nurse Practitioner Acute Care; ATTEND Internal Medicine
PROC: 5A09357 Assistance with Respiratory Ventilation, Less than 24 Consecutive Hours, Continuous Positive Airway Pressure (ICD-10-PCS; principal; 2022-07-09)
PROC: 05HB33Z Insertion of Infusion Device into Right Basilic Vein, Percutaneous Approach (ICD-10-PCS; 2022-07-10)
PROC: 5A1935Z Respiratory Ventilation, Less than 24 Consecutive Hours (ICD-10-PCS; 2022-07-15)
PROC: 0BH17EZ Insertion of Endotracheal Airway into Trachea, Via Natural or Artificial Opening (ICD-10-PCS; 2022-07-15)
DX: J84.112 Idiopathic pulmonary fibrosis (principal); I21.4 Non-ST elevation (NSTEMI) myocardial infarction; J12.9 Viral pneumonia, unspecified; J96.21 Acute and chronic respiratory failure with hypoxia; E87.20 Acidosis, unspecified; E87.1 Hypo-osmolality and hyponatremia; Z66 Do not resuscitate; Z20.822 Contact with and (suspected) exposure to COVID-19; I10 Essential (primary) hypertension; G47.33 Obstructive sleep apnea (adult) (pediatric); E87.6 Hypokalemia; I70.0 Atherosclerosis of aorta; D69.6 Thrombocytopenia, unspecified; J30.9 Allergic rhinitis, unspecified; L89.156 Pressure-induced deep tissue damage of sacral region; R19.7 Diarrhea, unspecified; U09.9 Post COVID-19 condition, unspecified
CPT/HCPCS: 31720; 36415; 36600; 71045-TC; 80048-TC; 80076-TC; 80202-TC; 82533; 82803-TC; 83605-TC; 83735-TC; 83880; 84100-TC; 84439-TC; 84443-TC; 84478-TC; 84484-TC; 85025-TC; 85730-TC; 87040-TC; 87081-TC; 93307-TC; 93970-TC; 94002-TC; 94760-TC; 94762-TC; 94799-TC; 97110-TC; 97530-TC; C9113; G0378; J0330; J0696; J1650; J1940; J2543; J2930; J3370; J3490; J7030; J7040; J7050; J7060